=== PATIENT | male | born 1970 | race Caucasian/White ===

== ENCOUNTER 2022-07-29 20:26 | Emergency (ER) | payer OTHER ==
[~2022-07-29] VITALS: Ht 182.9 cm; Wt 81.6 kg
[2022-07-29 21:37] VITALS: BP 146/79
--- NOTE | 2022-07-29 21:43 | NUR ---
[facility] - STAFF AT FACILITY [phone]
--- NOTE | 2022-07-29 22:27 | NUR ---
Patient discharged to facility staff, [place]. Written and verbal after care instructions given. Patient verbalizes understanding of instruction. Pt ambulatory with a steady gait
== END 2022-07-29 22:28 | disposition home or self-care (01) ==
LOC: ER 20:52
DX: R76.12 Nonspecific reaction to cell mediated immunity measurement of gamma interferon antigen response without active tuberculosis (principal); F17.210 Nicotine dependence, cigarettes, uncomplicated
CPT/HCPCS: 71045-TC